=== PATIENT | female | born 1940 | race Caucasian/White ===

== ENCOUNTER → 2023-10-06 14:44 | Outpatient (REF) | payer OTHER, MEDICARE, SELFPAY ==
[2023-10-06 16:15] LABS: % Basophils 0.9 % (0-2); % Eosinophils 2.5 % (0-6); % Immature Granulocytes 0.3 % (0-0.5); % Monocytes 8.2 % (1.7-9.3); % Neutrophils 73.1 % (42.2-75.2); Absolute Basophils 0.1 10^3/uL (0-0.2); Absolute Eosinophils 0.2 10^3/uL (0-0.7); Absolute Monocytes 0.6 10^3/uL (0.1-0.6); Absolute Neutrophils 4.9 10^3/uL (1.4-6.5); Hematocrit 37.4 % (37.0-47.0); Hemoglobin 11.7 g/dL (12.0-16.0); Mean Corp Hgb Conc. 31.3 g/dL (33.0-37.0); Mean Corpuscular Volume 89.5 fL (81.0-99.0); Mean Platelet Volume 9.2 fL (7.4-10.4); Nucleated Red Blood Cells % 0 %; Platelet Count 288 10^3/uL (130-400); Red Blood Cell Count 4.18 10^6/uL (4.20-5.40); Red Cell Dist. Width 14.2 % (11.5-14.5); White Blood Cell Count 6.7 10^3/uL (4.8-10.8)
[2023-10-06 16:29] LABS: Erythrocyte Sed Rate 31 mm/hour (0-20)
[2023-10-06 16:39] LABS: ALT (SGPT) 23 U/L (0-35); AST (SGOT) 32 U/L (14-36); Albumin 4.7 g/dl (3.5-5.0); Alkaline Phosphatase 75 U/L (38-126); Blood Urea Nitrogen 26 mg/dl (7-17); Calcium 10.3 mg/dl (8.4-10.2); Carbon Dioxide 29 mmol/L (22-30); Chloride 97 mmol/L (98-107); Glucose 83 mg/dl (70-99); Potassium 3.7 mmol/L (3.5-5.1); Sodium 136 mmol/L (135-145); Total Bilirubin 0.4 mg/dl (0.2-1.3); Total Protein 7.2 g/dl (6.3-8.2); eGFR > 60.00
[2023-10-06 16:53] LABS: C-Reactive Protein < 5.00 mg/L (0.0-10.00)
[2023-10-06 16:59] LABS: TSH 0.35 uIU/ml (0.47-4.68)
[2023-10-06 17:34] LABS: Folate > 20.0 ng/ml (2.76-20); Vitamin B12 760 pg/ml (239-931)
[2023-10-09 03:28] LABS: ANA, IgG Reflex to HEp-2 None Detected (None Detected)
[2023-10-09 07:29] LABS: Arsenic, Blood <10.0 ug/L (<=12.0); Lead - Venous <2.0 ug/dL (<=4.9); Mercury, Blood <2.5 ug/L (<=10.0)
== END ==
LOC: REG 14:44
PROVIDERS: ATTENDING PHYSICIAN Family Medicine
DX: G62.9 Polyneuropathy, unspecified (principal)
CPT/HCPCS: 36415; 80053; 82175; 82607; 82746; 83655; 83825; 84155; 84165; 84207; 84425; 84443; 85025; 85652; 86038; 86140; 86618

== ENCOUNTER → 2023-10-14 16:50 | Outpatient (REF) | payer OTHER, MEDICARE, SELFPAY ==
[2023-10-14 19:30] LABS: Free T3 3.16 pg/ml (2.77-5.27); Free T4 1.25 ng/dl (0.78-2.19)
[2023-10-14 19:44] LABS: TSH 3.01 uIU/ml (0.47-4.68)
[2023-10-16 13:39] LABS: Thyroid Peroxidase Ab (TPO) 0.5 IU/mL (0.0-9.0)
== END ==
LOC: REG 16:50
PROVIDERS: ATTENDING PHYSICIAN Family Medicine
DX: E05.90 Thyrotoxicosis, unspecified without thyrotoxic crisis or storm (principal); E67.8 Other specified hyperalimentation
CPT/HCPCS: 36415; 84439; 84443; 84481; 86376